=== PATIENT | male | born 1965 | race Caucasian/White ===

== ENCOUNTER → 2019-03-15 06:55 | Outpatient (CLI) | payer BC, SELFPAY ==
[2019-03-15 08:41] LABS: Add Manual Diff / Slide Review NO; Basophils Absolute Auto 0 /uL (0-100); Basophils Percent Auto 0.7 % (0-2); Eosinophils Absolute Auto 100 /uL (0-450); Eosinophils Percent Auto 1.5 % (2-4); Hemoglobin 12.9 g/dL (13.5-17.5); Lymphocytes Absolute Auto 1500 /uL (1100-4500); Mean Corpuscular HGB Conc 32.3 % (30-36); Mean Corpuscular Hemoglobin 25.9 PG (26-34); Mean Corpuscular Volume 80.3 fL (80-100); Monocytes Absolute Auto 1000 /uL (0-900); Monocytes Percent Auto 14.3 % (3-14); Neutrophils Absolute Auto 4300 /uL (1500-7000); Neutrophils Percent Auto 61.5 % (50-75); Platelet Count 356 X10^3/uL (150-400); Red Blood Cell Count 4.98 X10^6/uL (4.5-5.9)
[2019-03-15 09:07] LABS: Alanine Aminotransferase 45 IU/L (21-72); Albumin 4.4 g/dL (3.5-5.0); Albumin Globulin Ratio 1.5 (1.0-2.8); Alkaline Phosphatase 112 U/L (38-126); Aspartate Aminotransferase 36 IU/L (17-59); BUN Creatinine Ratio 21.3 (6-22); Bilirubin Total 0.4 mg/dL (0.2-1.3); Blood Urea Nitrogen 17 mg/dL (9-20); Calcium 9.6 mg/dL (8.4-10.2); Carbon Dioxide 28 mmol/L (22-32); Chloride 101 mmol/L (98-107); Cholesterol 178 mg/dL (140-199); Estimated Glomerular Filt Rate > 60.0 mL/min (>60); Glucose 86 mg/dL (70-100); HDL Cholesterol 43 mg/dL (40-60); HEMOLYSIS < 15 (0-50); LDL Cholesterol Calculated 110 mg/dL (<100); Potassium 4.7 mmol/L (3.4-5.1); Sodium 137 mmol/L (137-145); Total Protein 7.4 g/dL (6.3-8.2); Triglycerides 126 mg/dL (35-150)
[2019-03-15 09:36] LABS: Prostate Specific Antigen Scrn 0.665 ng/mL (0.1-4.0)
== END ==
PROVIDERS: PCP Family Medicine; Visit Provider Family Medicine
DX: I10 Essential (primary) hypertension (principal); Z00.00 Encounter for general adult medical examination without abnormal findings; Z12.5 Encounter for screening for malignant neoplasm of prostate
CPT/HCPCS: 36415; 80053; 80061; 85025; G0103

== ENCOUNTER → 2019-06-10 07:02 | Outpatient (CLI) | payer BC, SELFPAY ==
[2019-06-10 07:48] LABS: Add Manual Diff / Slide Review NO; Basophils Absolute Auto 0 /uL (0-100); Basophils Percent Auto 0.6 % (0-2); Eosinophils Absolute Auto 100 /uL (0-450); Eosinophils Percent Auto 1.8 % (2-4); Hematocrit 45.8 % (41-53); Hemoglobin 15.7 g/dL (13.5-17.5); Lymphocytes Absolute Auto 1800 /uL (1100-4500); Lymphocytes Percent Auto 25.3 % (25-40); Mean Corpuscular HGB Conc 34.3 % (30-36); Mean Corpuscular Hemoglobin 29.7 PG (26-34); Mean Corpuscular Volume 86.7 fL (80-100); Monocytes Absolute Auto 900 /uL (0-900); Monocytes Percent Auto 12.9 % (3-14); Neutrophils Absolute Auto 4200 /uL (1500-7000); Neutrophils Percent Auto 59.4 % (50-75); Platelet Count 290 X10^3/uL (150-400); Red Blood Cell Count 5.29 X10^6/uL (4.5-5.9); Red Cell Distribution Width 16.3 % (11.6-14.8); White Blood Cell Count 7.1 X10^3/uL (4.5-11.0)
[2019-06-10 07:50] LABS: Reticulocyte Count, Percent 0.8 % (0.87-2.60)
[2019-06-10 08:24] LABS: HEMOLYSIS < 15 (0-50); Iron 61 ug/dL (49-181)
[2019-06-10 08:35] LABS: Percent Iron Saturation 18 % (20-50); Total Iron Binding Capacity 346 ug/dL (261-462); Transferrin 274 mg/dL (206-381)
[2019-06-10 09:03] LABS: Ferritin 17.1 ng/mL (17.9-464)
[2019-06-10 09:17] LABS: Vitamin B12 300 pg/mL (239-931)
== END ==
PROVIDERS: PCP Family Medicine; Visit Provider Family Medicine
DX: D50.0 Iron deficiency anemia secondary to blood loss (chronic) (principal)
CPT/HCPCS: 36415; 82607; 82728; 83540; 83550; 85025; 85045

== ENCOUNTER → 2019-07-28 11:17 | Outpatient (CLI) | payer BC, SELFPAY ==
[2019-07-28 12:04] LABS: Add Manual Diff / Slide Review NO; Basophils Absolute Auto 100 /uL (0-100); Basophils Percent Auto 0.8 % (0-2); Eosinophils Absolute Auto 100 /uL (0-450); Eosinophils Percent Auto 0.7 % (2-4); Hematocrit 45.5 % (41-53); Lymphocytes Absolute Auto 1500 /uL (1100-4500); Lymphocytes Percent Auto 20.4 % (25-40); Mean Corpuscular HGB Conc 35.2 % (30-36); Mean Corpuscular Volume 88.1 fL (80-100); Monocytes Absolute Auto 1000 /uL (0-900); Monocytes Percent Auto 13.9 % (3-14); Neutrophils Absolute Auto 4800 /uL (1500-7000); Neutrophils Percent Auto 64.2 % (50-75); Platelet Count 276 X10^3/uL (150-400); Red Blood Cell Count 5.16 X10^6/uL (4.5-5.9); Red Cell Distribution Width 13.4 % (11.6-14.8); White Blood Cell Count 7.6 X10^3/uL (4.5-11.0)
[2019-07-28 12:25] LABS: HEMOLYSIS < 15 (0-50); Iron 101 ug/dL (49-181)
[2019-07-28 12:38] LABS: Percent Iron Saturation 31 % (20-50); Total Iron Binding Capacity 323 ug/dL (261-462); Transferrin 261 mg/dL (206-381)
[2019-07-28 13:00] LABS: Ferritin 54.5 ng/mL (17.9-464)
[2019-07-28 13:10] LABS: Reticulocyte Count, Percent 0.9 % (0.87-2.60)
[2019-07-28 13:15] LABS: Vitamin B12 533 pg/mL (239-931)
== END ==
PROVIDERS: PCP Family Medicine; Visit Provider Family Medicine
DX: D50.0 Iron deficiency anemia secondary to blood loss (chronic) (principal)
CPT/HCPCS: 36415; 82607; 82728; 83540; 83550; 85025; 85045

== ENCOUNTER → 2019-12-05 16:53 | Outpatient (CLI) | payer BC, SELFPAY ==
[2019-12-05 17:36] LABS: Add Manual Diff / Slide Review NO; Basophils Absolute Auto 0 /uL (0-100); Basophils Percent Auto 0.6 % (0-2); Eosinophils Absolute Auto 100 /uL (0-450); Hematocrit 43.7 % (41-53); Lymphocytes Absolute Auto 1600 /uL (1100-4500); Lymphocytes Percent Auto 23.2 % (25-40); Mean Corpuscular HGB Conc 34.3 % (30-36); Mean Corpuscular Hemoglobin 31.4 PG (26-34); Mean Corpuscular Volume 91.7 fL (80-100); Monocytes Absolute Auto 1000 /uL (0-900); Monocytes Percent Auto 14.2 % (3-14); Neutrophils Absolute Auto 4100 /uL (1500-7000); Platelet Count 250 X10^3/uL (150-400); Red Blood Cell Count 4.77 X10^6/uL (4.5-5.9); White Blood Cell Count 6.9 X10^3/uL (4.5-11.0)
== END ==
PROVIDERS: PCP Family Medicine; Referring Provider Family Medicine; Visit Provider Family Medicine
DX: D50.0 Iron deficiency anemia secondary to blood loss (chronic) (principal)
CPT/HCPCS: 36415; 85025

== ENCOUNTER → 2020-06-12 08:28 | Outpatient (CLI) | payer BC, SELFPAY ==
[2020-06-12 10:08] LABS: Alanine Aminotransferase 31 IU/L (<50); Albumin 4.2 g/dL (3.5-5.0); Albumin Globulin Ratio 1.6 (1.0-2.8); Alkaline Phosphatase 80 U/L (38-126); Aspartate Aminotransferase 34 IU/L (17-59); BUN Creatinine Ratio 22.1 (6-22); Bilirubin Total 0.7 mg/dL (0.2-1.3); Blood Urea Nitrogen 19 mg/dL (9-20); Calcium 9.3 mg/dL (8.4-10.2); Carbon Dioxide 26 mmol/L (22-32); Chloride 105 mmol/L (98-107); Cholesterol 158 mg/dL (140-199); Estimated Glomerular Filt Rate > 60.0 mL/min (>60); Globulin 2.7 g/dL (1.7-4.1); Glucose 89 mg/dL (70-100); HDL Cholesterol 46 mg/dL (40-60); HEMOLYSIS < 15 (0-50); LDL Cholesterol Calculated 96 mg/dL (<100); Potassium 4.5 mmol/L (3.4-5.1); Sodium 138 mmol/L (137-145); Total Protein 6.9 g/dL (6.3-8.2); Triglycerides 78 mg/dL (35-150)
[2020-06-12 10:41] LABS: Prostate Specific Antigen Scrn 0.548 ng/mL (0.1-4.0)
== END ==
PROVIDERS: PCP Family Medicine; Referring Provider Family Medicine; Visit Provider Family Medicine
DX: Z12.5 Encounter for screening for malignant neoplasm of prostate (principal); I10 Essential (primary) hypertension; G47.33 Obstructive sleep apnea (adult) (pediatric); E78.5 Hyperlipidemia, unspecified
CPT/HCPCS: 36415; 80053; 80061; G0103

== ENCOUNTER → 2020-12-17 07:20 | Outpatient (CLI) | payer BC, SELFPAY ==
[2020-12-17 07:38] LABS: Add Manual Diff / Slide Review NO; Basophils Absolute Auto 0 /uL (0-100); Basophils Percent Auto 0.4 % (0-2); Eosinophils Absolute Auto 100 /uL (0-450); Hematocrit 42.3 % (41-53); Hemoglobin 14.5 g/dL (13.5-17.5); Lymphocytes Absolute Auto 1500 /uL (1100-4500); Lymphocytes Percent Auto 23.8 % (25-40); Mean Corpuscular HGB Conc 34.2 % (30-36); Mean Corpuscular Hemoglobin 30.8 PG (26-34); Monocytes Absolute Auto 800 /uL (0-900); Monocytes Percent Auto 12.8 % (3-14); Neutrophils Absolute Auto 3900 /uL (1500-7000); Platelet Count 250 X10^3/uL (150-400); Red Cell Distribution Width 12.9 % (11.6-14.8); White Blood Cell Count 6.4 X10^3/uL (4.5-11.0)
== END ==
PROVIDERS: PCP Family Medicine; Referring Provider Family Medicine; Visit Provider Family Medicine
DX: D50.0 Iron deficiency anemia secondary to blood loss (chronic) (principal); I10 Essential (primary) hypertension
CPT/HCPCS: 36415; 85025

== ENCOUNTER → 2021-09-18 07:03 | Outpatient (CLI) | payer BC, SELFPAY ==
[2021-09-18 08:17] LABS: Add Manual Diff / Slide Review NO; Basophils Absolute Auto 0 /uL (0-100); Basophils Percent Auto 0.6 % (0-2); Eosinophils Absolute Auto 100 /uL (0-450); Eosinophils Percent Auto 2.4 % (2-4); Hematocrit 41.5 % (41-53); Hemoglobin 14.1 g/dL (13.5-17.5); Lymphocytes Absolute Auto 1300 /uL (1100-4500); Lymphocytes Percent Auto 23.6 % (25-40); Mean Corpuscular Hemoglobin 30.9 PG (26-34); Mean Corpuscular Volume 90.9 fL (80-100); Monocytes Absolute Auto 800 /uL (0-900); Monocytes Percent Auto 14.8 % (3-14); Neutrophils Absolute Auto 3100 /uL (1500-7000); Neutrophils Percent Auto 58.6 % (50-75); Platelet Count 207 X10^3/uL (150-400); Red Blood Cell Count 4.57 X10^6/uL (4.5-5.9); Red Cell Distribution Width 13.2 % (11.6-14.8); White Blood Cell Count 5.3 X10^3/uL (4.5-11.0)
[2021-09-18 08:39] LABS: Alanine Aminotransferase 23 IU/L (<50); Albumin 4.2 g/dL (3.5-5.0); Albumin Globulin Ratio 1.8 (1.0-2.8); Alkaline Phosphatase 75 U/L (38-126); Aspartate Aminotransferase 27 IU/L (17-59); BUN Creatinine Ratio 15.7 (6-22); Bilirubin Total 0.4 mg/dL (0.2-1.3); Blood Urea Nitrogen 14 mg/dL (9-20); Calcium 9.5 mg/dL (8.4-10.2); Carbon Dioxide 27 mmol/L (22-32); Chloride 104 mmol/L (98-107); Cholesterol 173 mg/dL (140-199); Estimated Glomerular Filt Rate > 60.0 mL/min (>60); Globulin 2.4 g/dL (1.7-4.1); Glucose 90 mg/dL (70-100); HDL Cholesterol 52 mg/dL (40-60); HEMOLYSIS < 15 (0-50); LDL Cholesterol Calculated 102 mg/dL (<100); Potassium 4.5 mmol/L (3.4-5.1); Sodium 140 mmol/L (137-145); Total Protein 6.6 g/dL (6.3-8.2); Triglycerides 94 mg/dL (35-150)
[2021-09-18 09:10] LABS: Prostate Specific Antigen Scrn 0.607 ng/mL (0.1-4.0)
== END ==
PROVIDERS: PCP Family Medicine; Referring Provider Family Medicine; Visit Provider Family Medicine
DX: D50.0 Iron deficiency anemia secondary to blood loss (chronic) (principal); E78.5 Hyperlipidemia, unspecified; I10 Essential (primary) hypertension; Z12.5 Encounter for screening for malignant neoplasm of prostate
CPT/HCPCS: 36415; 80053; 80061; 85025; G0103

== ENCOUNTER → 2022-08-28 08:17 | Outpatient (CLI) | payer BC, SELFPAY ==
[2022-08-28 09:37] LABS: Hematocrit 43.4 % (41-53); Hemoglobin 14.8 g/dL (13.5-17.5); Mean Corpuscular HGB Conc 34.1 % (30-36); Mean Corpuscular Hemoglobin 30.9 PG (26-34); Mean Corpuscular Volume 90.7 fL (80-100); Platelet Count 304 X10^3/uL (150-400); Red Blood Cell Count 4.79 X10^6/uL (4.5-5.9); Red Cell Distribution Width 13.1 % (11.6-14.8); White Blood Cell Count 5.2 X10^3/uL (4.5-11.0)
[2022-08-28 10:34] LABS: Alanine Aminotransferase 30 IU/L (<50); Albumin 4.4 g/dL (3.5-5.0); Albumin Globulin Ratio 1.5 (1.0-2.8); Alkaline Phosphatase 80 U/L (38-126); Aspartate Aminotransferase 31 IU/L (17-59); Bilirubin Total 0.7 mg/dL (0.2-1.3); Blood Urea Nitrogen 11 mg/dL (9-20); Calcium 9.6 mg/dL (8.4-10.2); Carbon Dioxide 26 mmol/L (22-32); Chloride 101 mmol/L (98-107); Cholesterol 164 mg/dL (140-199); Estimated Glomerular Filt Rate > 60 mL/min (>60); Glucose 89 mg/dL (70-100); HDL Cholesterol 53 mg/dL (40-60); HEMOLYSIS < 15 (0-50); LDL Cholesterol Calculated 95 mg/dL (<100); Potassium 4.3 mmol/L (3.4-5.1); Sodium 138 mmol/L (137-145); Total Protein 7.4 g/dL (6.3-8.2); Triglycerides 79 mg/dL (35-150)
[2022-08-28 10:38] LABS: TSH w/ Reflex to FT4 2.82 uIU/mL (0.47-4.68)
[2022-08-28 10:47] LABS: Prostate Specific Antigen Scrn 0.683 ng/mL (0.1-4.0)
== END ==
PROVIDERS: PCP Family Medicine; Referring Provider Registered Nurse Diabetes Educator; Visit Provider Registered Nurse Diabetes Educator
DX: Z00.00 Encounter for general adult medical examination without abnormal findings (principal); Z12.5 Encounter for screening for malignant neoplasm of prostate; E78.5 Hyperlipidemia, unspecified; I10 Essential (primary) hypertension
CPT/HCPCS: 36415; 80053; 80061; 84443; 85027; G0103

== ENCOUNTER → 2022-11-26 13:36 | Outpatient (CLI) | payer BC, SELFPAY | PROVIDERS: PCP Family Medicine; Referring Provider Family Medicine; Visit Provider Family Medicine | DX: R00.2 Palpitations (principal); I10 Essential (primary) hypertension; F98.8 Other specified behavioral and emotional disorders with onset usually occurring in childhood and adolescence | CPT/HCPCS: 93005 ==

== ENCOUNTER 2023-04-16 16:51 | Observation (INO) | payer BC, SELFPAY ==
[2023-04-16] VITALS (32 sets, daily range): BP systolic 95–151; BP diastolic 71–94; PULSE 59–155; RESP 10–29; TEMP 36.3–37.1; O2SAT 94–98; BMI 25.1; BMI 25.4
--- NOTE | 2023-04-16 17:04 | ED_ITS ---
HPI - Arrhythmia/Palpitations General Chief Complaint: Arrhythmia/Palpitations Stated Complaint: cardiac issues Time Seen by Provider: 04/16/23 16:55 Source: patient Mode of arrival: Ambulatory History of Present Illness HPI narrative: 57M nonsmoker with history of ADHD presents with family in the chief complaint of 1-2 hours of rapid heart rate. He feels dizzy, weak and lightheaded and a bit short of breath. He denies any chest pain. He states that he is certain this is only been going on for 1-2 hours he denies any history of the same. He has recently traveled cross[place]country. He denies any lower extremity pain, swelling or redness. He denies any change in diet or medications. He does drink 3 drinks per day and has not changed his rate. He is otherwise well and free of complaint. Related Data Home Medications Medication Instructions Recorded Confirmed Respironics Dreamstation CPAP #1 ea 03/24/19 11/21/22 Previous Rx's Medication Instructions Recorded bupropion HCl 300 mg 24 hr tablet, 300 mg PO QAM #90 tabs 11/21/22 extended release lisdexamfetamine 20 mg capsule 20 mg PO DAILY #30 caps 11/21/22 lisdexamfetamine 20 mg capsule 20 mg PO DAILY #30 caps 11/21/22 lisdexamfetamine 20 mg capsule 20 mg PO DAILY ADD #90 caps 11/21/22 lisinopril 10 mg tablet 15 mg PO DAILY #135 tabs 11/21/22 Allergies Allergy/AdvReac Type Severity Reaction Status Date / Time No Known Drug Allergies Allergy Unknown Verified 04/16/23 16:58 [NO KNOWN DRUG ALLERGIES] Review of Systems Review of Systems Narrative: GENERAL: Denies chills, fatigue, malaise, fever, sweats. HEENT: Denies sinus pain, ear pain, sore throat, difficulty swallowing, dizziness. RESPIRATORY: Denies dyspnea, cough, wheezing, hemoptysis, sputum. CARDIOVASCULAR: See HPI GASTROINTESTINAL: Denies nausea, vomiting, abdominal pain, diarrhea, constipation, melena. : Denies dysuria, frequency, incontinence, hematuria, urinary retention. MUSCULOSKELETAL: denies weakness, joint pain, or bony pain SKIN: Denies rash, skin lesions, or other NEUROLOGIC: Denies weakness, headache, numbness, change in speech, confusion, seizures, incoordination. PSYCHIATRIC: No concerning psychosocial issues. 12 point review of systems is negative except for those stated above Patient History Medical History Anxiety (12/25/17) Asperger's disorder (01/29/18) Chicken pox (1968) Fatigue Hearing loss (2010) Hypertension (11/24/16) Hypertension (2006) Iron deficiency anemia due to chronic blood loss Obstructive sleep apnea of adult Plantar warts Platelet donor Snoring Surgical History Status post biopsy (05/29/15) Family History Father Age: 94 Hypertension Prostate cancer Multiple myeloma Melanoma Mother Age: 89 Heart disease Hypertension Breast cancer CAD (coronary artery disease) ST elevation myocardial infarction (STEMI), unspecified artery Pneumonia due to infectious organism, unspecified laterality, unspecified part of lung Uncomplicated asthma, unspecified asthma severity Grandfather Cancer Grandmother Renal failure Grandfather Heart attack Grandmother Lung cancer Secondhand smoke exposure Nonsmoker Sister No problems noted. 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 Sailing, skiing) Smoking Status: Never smoker Tobacco: How many years used: 0 quit status: quit date established (Never Started) second hand exposure: No alcohol intake: current (Moderately. 1-2 beers a day) substance use type: does not use Smoking Status: Never smoker alcohol intake frequency: 3 or more drinks per day Substance Use Type: does not use Exam Narrative Exam Narrative: GENERAL: [57] year old patient appears stated age. Well-developed patient, in mild distress. HEAD: Atraumatic. Normocephalic. EYES: Pupils equal round and reactive. Extraocular motions intact. No scleral icterus. No injection or drainage. ENT: Nose without bleeding, purulent drainage. Throat without erythema, tonsillar hypertrophy or exudate. Airway patent. NECK: Trachea midline. Non tender CARDIOVASCULAR: Tachycardic and irregular rhythm without murmurs, gallops, or rubs. RESPIRATORY: Clear to auscultation. Breath sounds equal bilaterally. No wheezes, rales, or rhonchi. GASTROINTESTINAL: Abdomen soft, non-tender, nondistended. EXTREMITIES: No edema or joint tenderness. BACK: Nontender without deformity or crepitance. No flank tenderness. NEURO: AOx3. SKIN: No rash or erythema of visible areas Initial Vital Signs Initial Vital Signs: Vital Signs Temperature 97.3 F L 04/16/23 16:54 Pulse Rate 74 04/16/23 16:54 Respiratory Rate 18 04/16/23 16:54 Blood Pressure 119/94 H 04/16/23 16:54 Pulse Oximetry 97 04/16/23 16:54 Oxygen Delivery Method Room Air 04/16/23 16:54 Procedures Cardioversion Consent Signed: Yes Procedural Sedation Consent signed: Yes Time out performed: Yes Indication: cardioversion Mallampati Airway Classification: Class II Preparation: satellite project site monitor applied, pulse oximeter, capnometry used, supplemental O2 applied, suction/airway equipment at bedside and IV secured IV Propofol dose (mg): 110 Intraservice time/total sedation time (min): 15 ED Sedation Level: Moderate (Concious) Patient Tolerated Procedure: Well and No complications Complications: none Course Orders Ordered: ED Orders 04/16/23 17:03 EKG-12 Lead Stat 04/16/23 17:07 Complete Blood Count AUTO DIFF Stat Comprehensive Metabolic Panel Stat D Dimer Stat Lipase Stat NT-proBNP (BNP-Adult 18+) Stat Prothrombin Time INR Stat Troponin & CK Cardiac Panel Stat Sodium Chloride (Normal Saline 0.9%) 1,000 mls @ 150 mls/hr IV CONT ADOLPH Last Admin: 04/16/23 17:54 Dose: 150 mls/hr Documented By: AT DILTIAZEM (Diltiazem 125 Mg/125 Ml-D5w) 125 mg in 125 mls @ 5 mls/hr IV TITRATE ADOLPH; Protocol Discontinued Medications Diltiazem HCl (Diltiazem 5 Mg/Ml Sdv) 20 mg IV NOW ONE Stop: 04/16/23 18:04 Propofol (Propofol 200 Mg/20 Ml Vial) 80 mg 1 mg/kg (80 mg) IV NOW ONE Stop: 04/16/23 17:03 Vital Signs Vital signs: Vital Signs - 8 hr 04/16/23 16:54 Temperature 97.3 F L Pulse Rate 74 Respiratory Rate 18 Blood Pressure 119/94 H Pulse Oximetry 97 Oxygen Delivery Method Room Air MDM - Arrhythmia/Palpitations Lab Data 04/16/23 17:07 04/16/23 17:07 Labs: Lab Results 04/16/23 04/16/23 04/16/23 Range/Units 17:07 17:07 17:07 WBC 9.4 (4.5-11.0) X10^3/uL RBC 4.95 (4.5-5.9) X10^6/uL Hgb 15.8 (13.5-17.5) g/dL Hct 44.7 (41-53) % MCV 90.2 (80-100) fL MCH 31.8 (26-34) PG MCHC 35.3 (30-36) % RDW 13.6 (11.6-14.8) % Plt Count 269 (150-400) X10^3/uL Neut % (Auto) 70.3 (50-75) % Lymph % (Auto) 15.7 L (25-40) % [place] % (Auto) 12.7 (3-14) % Eos % (Auto) 0.6 L (2-4) % Baso % (Auto) 0.7 (0-2) % Neut # (Auto) 6600 (4666-6300) /uL Lymph # (Auto) 1500 (8945-1832) /uL [place] # (Auto) 1200 H (0-900) /uL Eos # (Auto) 100 (0-450) /uL Baso # (Auto) 100 (0-100) /uL PT 12.3 (10.1-12.7) SECONDS INR 1.1 (0.9-1.3) D-Dimer < 215 (<500) ng/ml Sodium 135 L (137-145) mmol/L Potassium 4.0 (3.4-5.1) mmol/L Chloride 102 (98-107) mmol/L Carbon Dioxide 25 (22-32) mmol/L BUN 16 (9-20) mg/dL Creatinine 0.89 (0.66-1.25) mg/dL Estimated GFR > 60 (>60) mL/min BUN/Creatinine Ratio 18.0 (6-22) Glucose 142 H (70-100) mg/dL Calcium 8.9 (8.4-10.2) mg/dL Total Bilirubin 0.8 (0.2-1.3) mg/dL AST 37 (17-59) IU/L ALT 29 (<50) IU/L Alkaline Phosphatase 94 (38-126) U/L Total Creatine Kinase 390 H (55-170) U/L CK-MB (CK-2) TNP CK-MB (CK-2) Rel Index TNP Troponin I < 0.012 (0.01-0.034) ng/mL NT-Pro-B Natriuret Pep 60 (<125) pg/mL Total Protein 7.7 (6.3-8.2) g/dL Albumin 4.3 (3.5-5.0) g/dL Globulin 3.4 (1.7-4.1) g/dL Albumin/Globulin Ratio 1.3 (1.0-2.8) Lipase 68 (23-300) U/L ECG Data Interpretation: Rapid atrial fibrillation in the 160s with minimal ST depressions laterally MDM Narrative Medical decision making narrative: 57-year-old male with new onset atrial fibrillation for approximately 2 hours prior to arrival and is moderately symptomatic, EKG is in the 160s with lateral ST depressions. He is a very appropriate candidate for procedural sedation and cardioversion. Is consented and unfortunately after 3 shocks he did not convert. At this point Cardizem push and drip ordered, discussion with hospitalist (Dr. Suazo) who is happy to take patient on service Discharge Plan Departure Patient Disposition: Admitted as Observation Clinical Impression: Atrial fibrillation with RVR Prescriptions: No Action bupropion HCl 300 mg tablet extended release 24 hr 300 mg PO QAM Qty: 90 1RF lisinopril 10 mg tablet 15 mg PO DAILY Qty: 135 0RF lisdexamfetamine 20 mg capsule 20 mg PO DAILY Qty: 30 0RF Rx Instructions: 2 of 3 lisdexamfetamine 20 mg capsule 20 mg PO DAILY Qty: 30 0RF lisdexamfetamine 20 mg capsule 20 mg PO DAILY Qty: 90 0RF (DME) Respironics Dreamstation CPAP Qty: 1 Dose Instruction: As directed Patient Comments: Pressure: 6-12 cmH2O DME: Seth Rx Instructions: As directed Referrals: Tiff Whipple DO [Primary Care Provider] - Admit Date/Time: 04/16/23 18:08 Admit Provider: León Suazo
[2023-04-16 17:14] LABS: Add Manual Diff / Slide Review NO; Basophils Absolute Auto 100 /uL (0-100); Basophils Percent Auto 0.7 % (0-2); Eosinophils Absolute Auto 100 /uL (0-450); Eosinophils Percent Auto 0.6 % (2-4); Hematocrit 44.7 % (41-53); Hemoglobin 15.8 g/dL (13.5-17.5); Lymphocytes Absolute Auto 1500 /uL (1100-4500); Lymphocytes Percent Auto 15.7 % (25-40); Mean Corpuscular HGB Conc 35.3 % (30-36); Mean Corpuscular Hemoglobin 31.8 PG (26-34); Mean Corpuscular Volume 90.2 fL (80-100); Monocytes Absolute Auto 1200 /uL (0-900); Monocytes Percent Auto 12.7 % (3-14); Neutrophils Absolute Auto 6600 /uL (1500-7000); Neutrophils Percent Auto 70.3 % (50-75); Platelet Count 269 X10^3/uL (150-400); Red Blood Cell Count 4.95 X10^6/uL (4.5-5.9); Red Cell Distribution Width 13.6 % (11.6-14.8); White Blood Cell Count 9.4 X10^3/uL (4.5-11.0)
[2023-04-16 17:26] LABS: INR 1.1 (0.9-1.3); Prothrombin Time 12.3 SECONDS (10.1-12.7)
[2023-04-16 17:29] LABS: D Dimer < 215 ng/ml (<500)
[2023-04-16 17:31] LABS: Alanine Aminotransferase 29 IU/L (<50); Albumin 4.3 g/dL (3.5-5.0); Albumin Globulin Ratio 1.3 (1.0-2.8); Alkaline Phosphatase 94 U/L (38-126); Aspartate Aminotransferase 37 IU/L (17-59); Bilirubin Total 0.8 mg/dL (0.2-1.3); Blood Urea Nitrogen 16 mg/dL (9-20); Calcium 8.9 mg/dL (8.4-10.2); Carbon Dioxide 25 mmol/L (22-32); Chloride 102 mmol/L (98-107); Creatine Kinase 390 U/L (55-170); Estimated Glomerular Filt Rate > 60 mL/min (>60); Globulin 3.4 g/dL (1.7-4.1); Glucose 142 mg/dL (70-100); HEMOLYSIS 29 (0-50); Lipase 68 U/L (23-300); Sodium 135 mmol/L (137-145); Total Protein 7.7 g/dL (6.3-8.2)
[2023-04-16 17:43] LABS: NT-proBNP (BNP-Adult 18+) 60 pg/mL (<125); Troponin I < 0.012 ng/mL (0.01-0.034)
[2023-04-16] MEDS: SODIUM CHLORIDE 0.9% 1,000 ML 150 ML IV (17:54)
[2023-04-16] MEDS: propofoL 200 MG/20 ML VIAL 80 MG IV (17:55)
[2023-04-16] MEDS: propofoL 200 MG/20 ML VIAL 30 MG IV (17:59)
[2023-04-16] MEDS: dilTIAZem 5 MG/ML SDV 20 MG IV (18:20)
[2023-04-16] MEDS: DILTIAZEM 125 MG/125 ML PIGGYBACK IV (18:26)
[2023-04-16] MEDS: dilTIAZem 30 MG TABLET PO (19:47)
--- NOTE | 2023-04-16 20:22 | DI.ECHO.S_ITS ---
[facility] +---------+ : : [address] [place] [place] : : : : [id number] : : : : Phone: [phone] Echocardiogram Report + + :Name: BYRON PAREDES Study Date: 04/17/2023 Height: 70 in : :[facility] ReadingLocation: Weight: 175 lb : : Gender: Male BSA: 2.0 m2 : :: 1965 Age: 57 yrs BP: 129/85 mmHg: :Reason For Study: Atrial Fibrillation : :Ordering Physician: Bean, : :Des Performed By: Esha Lemons : :Referring: DES CAMARILLO : + + Interpretation Summary The ejection fraction is estimated to be 60-65%. The patient was in normal sinus rhythm during the exam. Diastolic parameters suggest probable normal left ventricular diastolic function and normal filling pressures. The right ventricular systolic function is normal. The IVC is of normal diameter and collapses greater than 50% with a sniff. This suggests a low right atrial pressure of 3 mm Hg. No significant valvular abnormality. Procedure: A two-dimensional transthoracic echocardiogram with color flow and Doppler was performed. The study quality was technically adequate. There is no prior echocardiogram noted for this patient. The patient was in normal sinus rhythm during the exam. Left Ventricle: The left ventricle is normal in size. The ejection fraction is estimated to be 60-65%. Diastolic parameters suggest probable normal left ventricular diastolic function and normal filling pressures. Right Ventricle: The right ventricle is normal size. The right ventricular systolic function is normal. Atria: The left atrium is borderline dilated. Right atrial size is normal. There is no Doppler evidence for an interatrial shunt. Mitral Valve: The mitral valve is normal. There is no mitral valve stenosis. There is trace mitral regurgitation. Aortic Valve: The aortic valve is not well visualized. There is no aortic valve stenosis. No aortic regurgitation is present. Tricuspid Valve: The tricuspid valve is normal. There is no tricuspid stenosis. There is trace tricuspid regurgitation. Pulmonic Valve: The pulmonic valve leaflets are thin and pliable; valve motion is normal. There is no pulmonic valvular stenosis. There is no pulmonic valvular regurgitation. Great Vessels: The aortic root is normal size. The ascending aorta is normal in size. The pulmonary artery is normal size. The IVC is of normal diameter and collapses greater than 50% with a sniff. This suggests a low right atrial pressure of 3 mm Hg. Pericardium/ Pleura There is no pericardial effusion. There is no pleural effusion. MMode/2D Measurements & Calculations LVIDd: 4.4 cm LVOT diam: 2.0 cm LVIDs: 2.7 cm Ao root diam: 3.5 cm FS: 38.6 % asc Aorta Diam: 3.3 cm IVSd: 1.1 cm LVPWd: 0.90 cm LV torres. diameter/BSA (cm/m^2): 2.2 LV sys. diameter/BSA (cm/m^2): 1.4 LA A2 area: 19.0 cm2 RA long axis: 5.5 cm LA A4 area: 11.9 cm2 RA area: 18.8 cm2 LA length (vol): 5.5 cm RA vol: 54.6 ml LA vol: 34.7 ml RA : 27.7 ml/m2 LA vol index: 17.6 ml/m2 RVD1 (basal): 3.7 cm LVLs ap4: 7.1 cm LVLd ap2: 9.2 cm TAPSE_phl: 3.0 cm LVLs ap2: 7.0 cm Doppler Measurements & Calculations Ao V2 max: 218.0 cm/sec LVOT Max Levi: 188.0 cm/sec Ao V2 mean: 141.0 cm/sec LV V1 max P.1 mmHg Ao max P.0 mmHg LV V1 VTI: 36.2 cm Ao mean P.0 mmHg URSULA(I,D): 2.5 cm2 Ao V2 VTI: 44.8 cm URSULA(V,D): 2.7 cm2 sev ratio: 0.81 URSULA indexed to BSA (cm^2/m^2): 1.3 MV E max levi: 80.2 cm/sec TR max levi: 262.0 cm/sec MV A max levi: 63.1 cm/sec TR max P.5 mmHg MV E/A: 1.3 Med Peak E' Levi: 9.4 cm/sec E/E' med: 8.6 Lat Peak E' Levi: 17.9 cm/sec E/E' lat: 4.5 E/e' average: 6.5 MV dec time: 0.26 sec SV(LVOT): 113.7 ml AV VR_phl: 0.86 URSULA(VTI)/BSA_phl: 1.3 P1/2t-pr_phl: 76.0 msec Reading Physician:MICHELLE
[2023-04-16 20:23] LABS: TSH w/ Reflex to FT4 2.55 uIU/mL (0.47-4.68)
--- NOTE | 2023-04-16 21:22 | P.HP_ITS ---
History of Present Illness History of Present Illness Date Patient Seen: 04/16/23 Time Patient Seen: 20:00 Chief complaint: cardiac issues Narrative: Mr. High is a 57M with H ADHD who presents to the hospital with lightheadedness and palpitations. He notes that these symptoms began today. He had no chest pain, no shortness of breath. No lower extremity swelling. He does drink 2-3 alcoholic drinks per day. In the ED workup was done, vitals notable for afebrile, heart rate in the 160s, blood pressure 110s/90s, sats 97% on room air. Labs reviewed and notable for WBC 9.4, hgb 15.8. creatinine 0.89. EKG showed heart rate in the 160s in atrial fibrillation with lateral ST depressions. Cardioversion was attempted x3 but was unsuccessful. He was ordered for push dose diltiazem and started on diltiazem drip and his heart rate improved to the 80s, and he remained in atrial fibrillation. He was admitted for further treatment. [facility] Medical History Anxiety (12/25/17) Asperger's disorder (01/29/18) Chicken pox (1968) Fatigue Hearing loss (2010) Hypertension (11/24/16) Hypertension (2006) Iron deficiency anemia due to chronic blood loss Obstructive sleep apnea of adult Plantar warts Platelet donor Snoring Surgical History Status post biopsy (05/29/15) Family History Father Age: 94 Hypertension Prostate cancer Multiple myeloma Melanoma Mother Age: 89 Heart disease Hypertension Breast cancer CAD (coronary artery disease) ST elevation myocardial infarction (STEMI), unspecified artery Pneumonia due to infectious organism, unspecified laterality, unspecified part of lung Uncomplicated asthma, unspecified asthma severity Grandfather Cancer Grandmother Renal failure Grandfather Heart attack Grandmother Lung cancer Secondhand smoke exposure Nonsmoker Sister No problems noted. 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 Sailing, skiing) Smoking Status: Never smoker Tobacco: How many years used: 0 quit status: quit date established (Never Started) second hand exposure: No alcohol intake: current substance use type: does not use Meds Home Medications and Allergies Home Medications Medication Instructions Recorded Confirmed Type Respironics Dreamstation CPAP #1 ea 03/24/19 11/21/22 History bupropion HCl 300 mg 24 hr tablet, 300 mg PO QAM #90 tabs 11/21/22 04/16/23 Rx extended release lisdexamfetamine 20 mg capsule 20 mg PO DAILY #30 caps 11/21/22 11/21/22 Rx lisdexamfetamine 20 mg capsule 20 mg PO DAILY #30 caps 11/21/22 11/21/22 Rx lisdexamfetamine 20 mg capsule 20 mg PO DAILY ADD #90 caps 11/21/22 11/21/22 Rx lisinopril 10 mg tablet 15 mg PO DAILY #135 tabs 11/21/22 04/16/23 Rx Allergies Allergy/AdvReac Type Severity Reaction Status Date / Time No Known Drug Allergies Allergy Unknown Verified 04/16/23 16:58 [NO KNOWN DRUG ALLERGIES] Review of Systems Review of Systems Narrative: 14 systems reviewed and negative aside from what is noted in HPI Exam Vital Signs (past 8 hours): - 04/16/23 16:54 04/16/23 18:20 04/16/23 18:05 Temperature 97.3 F L Pulse Rate 74 96 H 122 H Respiratory Rate 18 20 Blood Pressure 119/94 H 138/78 Pulse Oximetry 97 Oxygen Delivery Method Room Air 04/16/23 17:02 04/16/23 17:20 04/16/23 17:20 Temperature Pulse Rate 73 149 H Respiratory Rate Blood Pressure 129/93 H Pulse Oximetry 97 97 Oxygen Delivery Method Room Air 04/16/23 17:30 04/16/23 17:30 04/16/23 17:49 Temperature Pulse Rate 154 H Respiratory Rate 19 Blood Pressure 125/91 H Pulse Oximetry 97 97 Oxygen Delivery Method Room Air 04/16/23 17:49 04/16/23 17:50 04/16/23 17:50 Temperature Pulse Rate 150 H Respiratory Rate 16 Blood Pressure 123/82 133/81 Pulse Oximetry 97 Oxygen Delivery Method Room Air 04/16/23 17:55 04/16/23 17:55 04/16/23 18:00 Temperature Pulse Rate 153 H 155 H Respiratory Rate 18 25 H Blood Pressure 126/89 Pulse Oximetry 97 97 Oxygen Delivery Method Room Air Room Air 04/16/23 18:05 04/16/23 18:05 04/16/23 18:11 Temperature Pulse Rate 150 H 135 H Respiratory Rate 18 22 Blood Pressure 95/71 Pulse Oximetry 95 96 Oxygen Delivery Method Room Air 04/16/23 18:11 04/16/23 18:15 04/16/23 18:15 Temperature Pulse Rate 123 H Respiratory Rate 19 Blood Pressure 113/81 133/80 Pulse Oximetry 96 Oxygen Delivery Method Room Air 04/16/23 18:20 04/16/23 18:20 04/16/23 18:24 Temperature Pulse Rate 100 H 76 Respiratory Rate 18 12 Blood Pressure 138/78 Pulse Oximetry 96 97 Oxygen Delivery Method Room Air 04/16/23 18:24 04/16/23 18:25 04/16/23 18:25 Temperature Pulse Rate 75 Respiratory Rate 19 Blood Pressure 113/71 119/76 Pulse Oximetry 96 Oxygen Delivery Method Room Air 04/16/23 18:30 04/16/23 18:30 04/16/23 18:35 Temperature Pulse Rate 73 69 Respiratory Rate 17 21 Blood Pressure 115/75 Pulse Oximetry 94 95 Oxygen Delivery Method 04/16/23 18:35 04/16/23 18:40 04/16/23 18:40 Temperature Pulse Rate 79 Respiratory Rate 29 H Blood Pressure 112/73 123/79 Pulse Oximetry 98 Oxygen Delivery Method 04/16/23 18:50 04/16/23 18:50 04/16/23 19:00 Temperature Pulse Rate 73 Respiratory Rate 16 Blood Pressure 126/74 131/83 Pulse Oximetry 96 Oxygen Delivery Method 04/16/23 19:00 04/16/23 19:47 04/16/23 19:10 Temperature Pulse Rate 72 94 H 77 Respiratory Rate 20 15 Blood Pressure 133/73 Pulse Oximetry 97 96 Oxygen Delivery Method Room Air Room Air 04/16/23 19:10 04/16/23 19:20 04/16/23 19:20 Temperature Pulse Rate 80 Respiratory Rate 20 Blood Pressure 111/77 111/84 Pulse Oximetry 97 Oxygen Delivery Method Room Air 04/16/23 19:30 04/16/23 19:31 04/16/23 19:31 Temperature Pulse Rate 85 83 Respiratory Rate 20 18 Blood Pressure 151/90 H Pulse Oximetry 97 97 Oxygen Delivery Method Room Air Room Air 04/16/23 19:40 04/16/23 19:40 04/16/23 19:50 Temperature Pulse Rate 97 H 83 Respiratory Rate 18 23 Blood Pressure 133/77 Pulse Oximetry 97 96 Oxygen Delivery Method Room Air Room Air 04/16/23 19:50 04/16/23 20:00 04/16/23 20:00 Temperature Pulse Rate 80 Respiratory Rate 19 Blood Pressure 137/92 H 137/84 Pulse Oximetry 97 Oxygen Delivery Method 04/16/23 20:27 04/16/23 20:55 Temperature 98.8 F Pulse Rate 76 Respiratory Rate 20 Blood Pressure 142/83 H Pulse Oximetry 96 Oxygen Delivery Method Room Air Oxygen Delivery Method Room Air Narrative Exam Narrative: GEN: no acute distress CV: irregular, no murmurs PULM: clear bilaterally ABD: soft, nontender, nondistended, no organomegaly EXT: warm and well perfused with no edema Objective Labs 04/16/23 17:07 04/16/23 17:07 Labs: Laboratory Results - last 24 hr 04/16/23 04/16/23 04/16/23 17:07 17:07 17:07 WBC 9.4 RBC 4.95 Hgb 15.8 Hct 44.7 MCV 90.2 MCH 31.8 MCHC 35.3 RDW 13.6 Plt Count 269 Neut % (Auto) 70.3 Lymph % (Auto) 15.7 L [place] % (Auto) 12.7 Eos % (Auto) 0.6 L Baso % (Auto) 0.7 Neut # (Auto) 6600 Lymph # (Auto) 1500 [place] # (Auto) 1200 H Eos # (Auto) 100 Baso # (Auto) 100 PT 12.3 INR 1.1 D-Dimer < 215 Sodium 135 L Potassium 4.0 Chloride 102 Carbon Dioxide 25 BUN 16 Creatinine 0.89 Estimated GFR > 60 BUN/Creatinine Ratio 18.0 Glucose 142 H Calcium 8.9 Total Bilirubin 0.8 AST 37 ALT 29 Alkaline Phosphatase 94 Total Creatine Kinase 390 H CK-MB (CK-2) TNP CK-MB (CK-2) Rel Index TNP Troponin I < 0.012 NT-Pro-B Natriuret Pep 60 Total Protein 7.7 Albumin 4.3 Globulin 3.4 Albumin/Globulin Ratio 1.3 Lipase 68 TSH 04/16/23 17:07 WBC RBC Hgb Hct MCV MCH MCHC RDW Plt Count Neut % (Auto) Lymph % (Auto) [place] % (Auto) Eos % (Auto) Baso % (Auto) Neut # (Auto) Lymph # (Auto) [place] # (Auto) Eos # (Auto) Baso # (Auto) PT INR D-Dimer Sodium Potassium Chloride Carbon Dioxide BUN Creatinine Estimated GFR BUN/Creatinine Ratio Glucose Calcium Total Bilirubin AST ALT Alkaline Phosphatase Total Creatine Kinase CK-MB (CK-2) CK-MB (CK-2) Rel Index Troponin I NT-Pro-B Natriuret Pep Total Protein Albumin Globulin Albumin/Globulin Ratio Lipase TSH 2.55 Assessment & Plan Assessment & Plan narrative: 1. Atrial fibrillation with RVR -new diagnosis for patient -per family he has not taken adhd med for three weeks -TSH normal, troponin negative -attempted cardioversion x3 in ED was not successful -dilt gtt at 5cc/hr controlled rate -will start PO dilt at 30mg q6h and attempt to wean off dilt -keep on telemetry -ordered for ECHO -chadsvasc2 score of 1, consider anticoagulation/antiplatelet on discharge 2. ADHD -stopped lisdexamfetamine three weeks ago per family I have discussed the plan and obtained history from the patient and family. I have discussed plan of care with ED physician and bedside nurse. I have reviewed labs, imaging. CODE: Full Proxy: Gabriella Blackman, spouse Quality [facility] - Meds 'Current medications' to include all prescriptions, [id number] products, herbals, cannabis/cannabidiol products, and vitamin/mineral/dietary (nutritional) supplements. I have utilized all available resources to obtain, update, or review the patient?s current medications. [If Yes, STOP here]: Yes
--- NOTE | 2023-04-16 21:38 | PC.NURSE ---
Addendum entered by Leda Pineda R.N. 04/17/23 00:18: Pt HR in the mid-high 50s. made aware. Stated baseline heart rate is around 60. All other vitals stable. Pt currently resting and in no distress. Ordered to skip midnight dose of cardizem. Addendum entered by Leda Pineda R.N. 04/16/23 22:56: Around 2253, pt converted from Afib CVR to NSR. MD contacted. No new orders given. Original Note: Pt arrived to unit around 2030. A&OX4, calm/cooperative, in no acute distress and no pain. Vitals signs stable, including heart being WNL. Pt currently resting in bed.
--- NOTE | 2023-04-16 21:40 | DI.RAD.S_ITS ---
PROCEDURE: XR CHEST 1V INDICATIONS: new afib TECHNIQUE: One view of the chest was acquired. COMPARISON: None. FINDINGS: Surgical changes and devices: None. Lungs and pleura: Lungs are clear. No pleural effusions or pneumothorax. Mediastinum: Mediastinal contours appear normal. Heart size is normal. Bones and chest wall: No suspicious bony lesions. Overlying soft tissues appear unremarkable. IMPRESSION: 1. No acute cardiopulmonary disease. Dictated by: Shahzad Bryan M.D. on 04/16/2023 at 23:18 Approved by: Shahzad Bryan M.D. on 04/16/2023 at 23:18
[2023-04-16] MEDS: APIXABAN 5 MG TABLET PO (23:25)
[2023-04-17] VITALS (23 sets, daily range): BP systolic 108–131; BP diastolic 71–85; PULSE 50–82; RESP 11–28; TEMP 36.6–36.9; O2SAT 96–98
[2023-04-17 04:25] LABS: Add Manual Diff / Slide Review NO; Basophils Absolute Auto 100 /uL (0-100); Basophils Percent Auto 1.1 % (0-2); Eosinophils Absolute Auto 100 /uL (0-450); Eosinophils Percent Auto 2.1 % (2-4); Hemoglobin 14.6 g/dL (13.5-17.5); Lymphocytes Absolute Auto 1100 /uL (1100-4500); Lymphocytes Percent Auto 17.7 % (25-40); Mean Corpuscular HGB Conc 34.7 % (30-36); Mean Corpuscular Hemoglobin 31.6 PG (26-34); Monocytes Absolute Auto 1000 /uL (0-900); Monocytes Percent Auto 15.6 % (3-14); Neutrophils Absolute Auto 4000 /uL (1500-7000); Neutrophils Percent Auto 63.5 % (50-75); Platelet Count 245 X10^3/uL (150-400); Red Blood Cell Count 4.62 X10^6/uL (4.5-5.9); Red Cell Distribution Width 13.7 % (11.6-14.8); White Blood Cell Count 6.4 X10^3/uL (4.5-11.0)
[2023-04-17 04:31] LABS: BUN Creatinine Ratio 17.9 (6-22); Blood Urea Nitrogen 15 mg/dL (9-20); Calcium 8.5 mg/dL (8.4-10.2); Carbon Dioxide 25 mmol/L (22-32); Chloride 106 mmol/L (98-107); Estimated Glomerular Filt Rate > 60 mL/min (>60); Glucose 98 mg/dL (70-100); HEMOLYSIS 17 (0-50); Sodium 137 mmol/L (137-145)
[2023-04-17 05:38] LABS: MRSA (Nasal) PCR Not Detected (Not Detect)
[2023-04-17] MEDS: APIXABAN 5 MG TABLET PO (08:44)
[2023-04-17 11:19] LABS: Magnesium 2.3 mg/dL (1.6-2.3)
[2023-04-17] MEDS: dilTIAZem 30 MG TABLET PO (11:19)
--- NOTE | 2023-04-17 12:01 | P.DS_ITS ---
History of Present Illness History of Present Illness Date Patient Seen: 04/16/23 Time Patient Seen: 20:00 Chief complaint: cardiac issues Narrative: Mr. High is a 57M with PMH ADHD who presents to the hospital with lightheadedness and palpitations. He notes that these symptoms began today. He had no chest pain, no shortness of breath. No lower extremity swelling. He does drink 2-3 alcoholic drinks per day. In the ED workup was done, vitals notable for afebrile, heart rate in the 160s, blood pressure 110s/90s, sats 97% on room air. Labs reviewed and notable for WBC 9.4, hgb 15.8. creatinine 0.89. EKG showed heart rate in the 160s in atrial fibrillation with lateral ST depressions. Cardioversion was attempted x3 but was unsuccessful. He was ordered for push dose diltiazem and started on diltiazem drip and his heart rate improved to the 80s, and he remained in atrial fibrillation. He was admitted for further treatment. Discharge Providers Provider Date of admission: 04/16/23 18:08 Discharge Date: 04/17/23 Primary care physician: Tiff Whipple DO Discharge provider: Teo Tavares DO Summary Hospital Course Discharge Diagnosis: 1. Atrial fibrillation with RVR -new diagnosis for patient, risk factors 4 alcohol drinks per night and SHANTE but he uses CPAP -per family he has not taken adhd med for three weeks -TSH normal, troponin negative -attempted cardioversion x3 in ED was not successful -dilt gtt at 5cc/hr converted to NSR, then transitioned to po dilt 180 XL daily -keep on telemetry -ECHO showed EF 60-65%, NSR during exam, no sig valvular abnormalities or dilated atria -chadsvasc2 score of 1 for HTN, started on 4 weeks of po eliquis due to post- cardioversion -will get referral to see cardiology from PCP for holter monitor placement 2. ADHD -stopped lisdexamfetamine three weeks ago per family Hospital Course: Admitted for new-onset A-fib RVR which did not respond to CV attempts x3 in ED. Put on dilt drip at 5/hr which converted him to NSR. Transitioned to po dilt 180 XL daily. Echo was normal. Put on 4 weeks of po eliquis due to post- cardioversion prophylaxis. [id number] of 1 due to HTN so will likely not need chronic anticaog. Discussed limited his alcohol intake to 2 drinks per day instead of 4 and continuing compliance with his CPAP. He will f/u with cardiology in clinic for holter monitor. Time Spent with Patient Time spent: Greater than 30 minutes Exam Vital Signs (past 8 hours): - 04/17/23 05:00 04/17/23 04:30 04/17/23 05:00 Temperature Pulse Rate 53 L 55 L Respiratory Rate 12 12 Blood Pressure 110/76 110/76 Pulse Oximetry 97 97 Oxygen Delivery Method 04/17/23 05:00 04/17/23 06:00 04/17/23 06:14 Temperature 98.5 F Pulse Rate 50 L 56 L 54 L Respiratory Rate 17 15 Blood Pressure 116/81 116/81 Pulse Oximetry 97 98 Oxygen Delivery Method 04/17/23 05:30 04/17/23 06:00 04/17/23 06:00 Temperature Pulse Rate 72 53 L Respiratory Rate 26 H 13 Blood Pressure 116/81 Pulse Oximetry 96 97 Oxygen Delivery Method 04/17/23 06:30 04/17/23 07:00 04/17/23 07:00 Temperature 98 F Pulse Rate 54 L 63 Respiratory Rate 13 23 Blood Pressure 129/85 Pulse Oximetry 96 96 Oxygen Delivery Method 04/17/23 07:00 04/17/23 07:30 04/17/23 08:00 Temperature Pulse Rate 71 71 Respiratory Rate 18 23 Blood Pressure Pulse Oximetry 97 96 Oxygen Delivery Method Room Air 04/17/23 08:02 04/17/23 08:02 04/17/23 08:30 Temperature Pulse Rate 70 82 Respiratory Rate 19 28 H Blood Pressure 131/75 Pulse Oximetry 97 96 Oxygen Delivery Method 04/17/23 09:00 04/17/23 11:19 Temperature Pulse Rate 73 73 Respiratory Rate 20 Blood Pressure 131/75 Pulse Oximetry 97 Oxygen Delivery Method Oxygen Delivery Method Room Air Narrative Exam Narrative: GEN: no acute distress CV: regular, no murmurs PULM: clear bilaterally ABD: soft, nontender, nondistended, no organomegaly EXT: warm and well perfused with no edema Objective Labs 04/17/23 04:00 04/17/23 04:00 Labs: Laboratory Results - last 24 hr 04/16/23 04/16/23 04/16/23 17:07 17:07 17:07 WBC 9.4 RBC 4.95 Hgb 15.8 Hct 44.7 MCV 90.2 MCH 31.8 MCHC 35.3 RDW 13.6 Plt Count 269 Neut % (Auto) 70.3 Lymph % (Auto) 15.7 L [place] % (Auto) 12.7 Eos % (Auto) 0.6 L Baso % (Auto) 0.7 Neut # (Auto) 6600 Lymph # (Auto) 1500 [place] # (Auto) 1200 H Eos # (Auto) 100 Baso # (Auto) 100 PT 12.3 INR 1.1 D-Dimer < 215 Sodium 135 L Potassium 4.0 Chloride 102 Carbon Dioxide 25 BUN 16 Creatinine 0.89 Estimated GFR > 60 BUN/Creatinine Ratio 18.0 Glucose 142 H Calcium 8.9 Magnesium Total Bilirubin 0.8 AST 37 ALT 29 Alkaline Phosphatase 94 Total Creatine Kinase 390 H CK-MB (CK-2) TNP CK-MB (CK-2) Rel Index TNP Troponin I < 0.012 NT-Pro-B Natriuret Pep 60 Total Protein 7.7 Albumin 4.3 Globulin 3.4 Albumin/Globulin Ratio 1.3 Lipase 68 TSH Nasal Screen MRSA (PCR) 04/16/23 04/16/23 04/17/23 17:07 20:42 04:00 WBC 6.4 RBC 4.62 Hgb 14.6 Hct 42.0 MCV 91.0 MCH 31.6 MCHC 34.7 RDW 13.7 Plt Count 245 Neut % (Auto) 63.5 Lymph % (Auto) 17.7 L [place] % (Auto) 15.6 H Eos % (Auto) 2.1 Baso % (Auto) 1.1 Neut # (Auto) 4000 Lymph # (Auto) 1100 [place] # (Auto) 1000 H Eos # (Auto) 100 Baso # (Auto) 100 PT INR D-Dimer Sodium Potassium Chloride Carbon Dioxide BUN Creatinine Estimated GFR BUN/Creatinine Ratio Glucose Calcium Magnesium Total Bilirubin AST ALT Alkaline Phosphatase Total Creatine Kinase CK-MB (CK-2) CK-MB (CK-2) Rel Index Troponin I NT-Pro-B Natriuret Pep Total Protein Albumin Globulin Albumin/Globulin Ratio Lipase TSH 2.55 Nasal Screen MRSA (PCR) Not detected 04/17/23 04/17/23 04:00 04:00 WBC RBC Hgb Hct MCV MCH MCHC RDW Plt Count Neut % (Auto) Lymph % (Auto) [place] % (Auto) Eos % (Auto) Baso % (Auto) Neut # (Auto) Lymph # (Auto) [place] # (Auto) Eos # (Auto) Baso # (Auto) PT INR D-Dimer Sodium 137 Potassium 4.0 Chloride 106 Carbon Dioxide 25 BUN 15 Creatinine 0.84 Estimated GFR > 60 BUN/Creatinine Ratio 17.9 Glucose 98 Calcium 8.5 Magnesium 2.3 Total Bilirubin AST ALT Alkaline Phosphatase Total Creatine Kinase CK-MB (CK-2) CK-MB (CK-2) Rel Index Troponin I NT-Pro-B Natriuret Pep Total Protein Albumin Globulin Albumin/Globulin Ratio Lipase TSH Nasal Screen MRSA (PCR) [facility] Medical History Anxiety (12/25/17) Asperger's disorder (01/29/18) Chicken pox (1968) Fatigue Hearing loss (2010) Hypertension (11/24/16) Hypertension (2006) Iron deficiency anemia due to chronic blood loss Obstructive sleep apnea of adult Plantar warts Platelet donor Snoring Surgical History Status post biopsy (05/29/15) Family History Father Age: 94 Hypertension Prostate cancer Multiple myeloma Melanoma Mother Age: 89 Heart disease Hypertension Breast cancer CAD (coronary artery disease) ST elevation myocardial infarction (STEMI), unspecified artery Pneumonia due to infectious organism, unspecified laterality, unspecified part of lung Uncomplicated asthma, unspecified asthma severity Grandfather Cancer Grandmother Renal failure Grandfather Heart attack Grandmother Lung cancer Secondhand smoke exposure Nonsmoker Sister No problems noted. 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 Sailing, skiing) Smoking Status: Never smoker Tobacco: How many years used: 0 quit status: quit date established (Never Started) second hand exposure: No alcohol intake: current substance use type: does not use Discharge Plan Discharge Plan Patient Disposition: Home Discharge orders & Medications Prescriptions: New diltiazem HCl 180 mg capsule,extended release 24 hr 180 mg PO DAILY Qty: 30 1RF Continued bupropion HCl 300 mg tablet extended release 24 hr 300 mg PO QAM Qty: 90 1RF (DME) Respironics Dreamstation CPAP Qty: 1 Dose Instruction: As directed Patient Comments: Pressure: 6-12 cmH2O DME: [place] Rx Instructions: As directed No Action Eliquis 5 mg tablet 5 mg PO BID 30 Days Qty: 60 1RF lisinopril 10 mg tablet 15 mg PO DAILY Qty: 135 0RF Rx Instructions: Takes in the evenings Follow up/Referrals: Tiff Whipple DO [Primary Care Provider] - 1 Week Visit Report/Discharge Packet Stand Alone Forms: Patient Portal/API, Stroke Signs & Symptoms Discharge Data Primary Care Provider: Tiff Whipple Attending Provider: León Suazo Admit Date/Time: 04/16/23 18:08 Discharges patient from system. Discharge Date/Time: 04/17/23 12:00
== END 2023-04-17 12:00 | disposition home or self-care (01) ==
LOC: ED 17:02 → AC 18:08 → ICU 20:11
PROVIDERS: Internal Medicine; Student in an Organized Health Care Education/Training Program; Admitting Provider Internal Medicine; Emergency Provider Emergency Medicine; PCP Family Medicine; Referring Provider Emergency Medicine; Visit Provider Internal Medicine
DX: R00.2 Palpitations (principal); R06.02 Shortness of breath; R42 Dizziness and giddiness; R53.1 Weakness; F90.9 Attention-deficit hyperactivity disorder, unspecified type
CPT/HCPCS: 36415; 71045; 80048; 80053; 82550; 83690; 83735; 83880; 84443; 84484; 85025; 85379; 85610; 87797; 92960; 93005; 93306; 96365; 96366; 96375; 99152; 99285; G0378; J2704

== ENCOUNTER 2023-08-11 08:46 | Day surgery (SDC) | payer BC, SELFPAY ==
[2023-04-16 20:29] VITALS: BMI 25.4
--- NOTE | 2023-08-11 | PATH_ITS ---
[facility] Accession Number: [id number] No. of containers..01 Tissue . 01 Material submitted: . colon - DESCENDING COLON POLYP . 01 Diagnosis: Descending Colon Polyp: Hyperplastic polyp. MRV 08/13/2023 1153 Local . 01 Electronically signed: . Teo Carolina MD, PhD, Pathologist NPI- [id number] . 01 Gross description: . DESCENDING COLON POLYP: Received in formalin are multiple fragment(s) of altman, soft tissue measuring 0.1 x 0.1 x 0.1 cm to 0.3 x 0.2 x 0.2 cm submitted entirely in 1 cassette(s) /SRINIVASA 08/12/2023 1926 Local . 01 Pathologist provided ICD-10: K63.5 . 01 CPT . 364879 Specimen Comment: A courtesy copy of this report has been sent to [phone] Performed at: 01 [facility] [address] [place] [address], [place], [place] [id number] MD Shahzad Zimmerman MD Phone: [phone]
[2023-08-11] MEDS: LACTATED RINGERS 1,000 ML 84 ML IV (09:01)
[2023-08-11 09:08] VITALS: BP 132/87; PULSE 85; RESP 16; TEMP 36.4; O2SAT 100; BMI 23.6
--- NOTE | 2023-08-11 09:43 | PM.HP.1 ---
History of Present Illness History of Present Illness Date Patient Seen: 08/11/23 Time Patient Seen: 09:43 Chief complaint: SDC Narrative: 58 year old man with a personal history of colonic polyps here for screening colonoscopy. Last colonoscopy was approximately 5 years ago and significant for benign polyps. No family history of intestinal malignancy. No abdominal concerns today including pain, unintentional weight loss blood per rectum, anorexia. [facility] Medical History Platelet donor Fatigue Iron deficiency anemia due to chronic blood loss Obstructive sleep apnea of adult Snoring Plantar warts Hearing loss (2010) Chicken pox (1968) Hypertension (2006) Asperger's disorder (01/29/18) Hypertension (11/24/16) Anxiety (12/25/17) Surgical History Status post biopsy (05/29/15) Family History Father Age: 94 Hypertension Prostate cancer Multiple myeloma Melanoma Mother Age: 89 Heart disease Hypertension Breast cancer CAD (coronary artery disease) ST elevation myocardial infarction (STEMI), unspecified artery Pneumonia due to infectious organism, unspecified laterality, unspecified part of lung Uncomplicated asthma, unspecified asthma severity Grandfather Cancer Grandmother Renal failure Grandfather Heart attack Grandmother Lung cancer Secondhand smoke exposure Nonsmoker Sister No problems noted. 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 Sailing, skiing) Smoking Status: Never smoker Tobacco: How many years used: 0 quit status: quit date established (Never Started) second hand exposure: No alcohol intake: former substance use type: does not use Meds Home Medications and Allergies Home Medications Medication Instructions Recorded Confirmed Type Respironics Dreamstation CPAP #1 ea 03/24/19 04/17/23 History bupropion HCl 300 mg 24 hr tablet, 300 mg PO QAM #90 tabs 11/21/22 08/11/23 Rx extended release lisinopril 10 mg tablet 15 mg (1.5 x 10 mg) PO DAILY #135 08/10/23 08/11/23 Rx tabs diltiazem HCl 180 mg capsule,24 120 mg PO DAILY 08/11/23 08/11/23 History hr,extended release magnesium oxide 400 mg (241.3 mg 400 mg PO DAILY 08/11/23 08/11/23 History magnesium) tablet Allergies Allergy/AdvReac Type Severity Reaction Status Date / Time No Known Drug Allergies Allergy Unknown Verified 08/11/23 09:16 [NO KNOWN DRUG ALLERGIES] Exam Vital Signs (past 8 hours): - 08/11/23 09:08 Temperature 97.6 F Pulse Rate 85 Respiratory Rate 16 Blood Pressure 132/87 Pulse Oximetry 100 Oxygen Delivery Method Room Air Oxygen Delivery Method Room Air Narrative Exam Narrative: General adult man alert oriented no acute distress Assessment & Plan Assessment and plan (1) Personal history of colonic polyps: Status: Acute Assessment & Plan narrative: The patient requires colorectal screening and colonoscopy is recommended. Technical details were discussed. Risks, benefits, alternatives explained. Risks including but not limited to myocardial infarction, aspiration, bleeding, pain, missed lesion, incomplete examination, need for further radiographic studies, colonic perforation, and need for major abdominal surgery were discussed. All questions were answered to their satisfaction, and they are in agreement with this plan.
--- NOTE | 2023-08-11 09:45 | PM.OP.COLON ---
Operative Date/Time/Diagnoses Date of procedure: 08/11/23 Time of procedure: 09:45 Pre-op diagnosis: Personal history of colonic polyps Procedure & Clinicians Study performed: Colonoscopy Same procedure as scheduled: Yes Indications: 58-year-old man personal history of colonic polyps here for colorectal screening Surgeon: Damian Tam Procedure Notes Procedure in detail: The history and physical was performed/updated and the patient is ASA class is 2. The procedure was discussed in detail with the patient. Potential risks complications including infection, bleeding, missed diagnosis, perforation, need for surgery, and were explained. Their questions were answered and informed consent was obtained. Patient was brought to the procedure room and placed standard monitoring equipment. The patient's vital signs were monitored continuously throughout the entire procedure. Prior to starting time-out was performed. The patient was placed in the left lateral recumbent position. Procedural sedation was administered by anesthesia. Examination began with a thorough inspection of the perianal area there was no evidence of fissures, fistulae, external hemorrhoids or cutaneous malignancy. The colonoscopy scope was then placed into the anal canal and was advanced to the cecum, which was identified by the ileocecal valve, the appendiceal orifice and the confluence of the taenia. The scope was then slowly withdrawn examining colon thoroughly in all directions, irrigating it of any residual stool. Descending colon-flat 5 mm-8 mm polyp at 50 cm from the anal verge. Tattoo ink and saline were injected at the site of the polyp in order to elevate it. Despite lifting we still could not secure a snare around the polyp due to its extremely flat nature. We then used the biopsy forceps to remove the polyp in piecemeal the entirety of the polyp was removed. Rectum-grade 1 internal hemorrhoids The patient tolerated the procedure well. They will be discharged once criteria are met. The prep was of good/excellent quality. The withdrawl time was 50 minutes. Specimen(s): other (Descending colonic polyp) Impression: Colonic polyp x1 Post-procedure Plan for aftercare: Follow-up is dependent on pathology findings. Disposition: same day surgery
[2023-08-11 10:23] VITALS: BP 96/69; PULSE 59; RESP 12; TEMP 36.4; O2SAT 98
[2023-08-11 10:29] VITALS: BP 100/67; PULSE 63; RESP 14; O2SAT 98
[2023-08-11 10:33] VITALS: BP 99/62; PULSE 79; RESP 17; TEMP 36.5; O2SAT 97
[2023-08-11 10:44] VITALS: BP 108/72; PULSE 85; RESP 16; TEMP 36.3; O2SAT 99
--- NOTE | 2023-08-11 10:55 | SUR.PHASEII ---
Pt states he feels better and that he is ready for a donut and ready to go home. Pt to be discharged with his . Pt states he understands discharge instructions.
== END 2023-08-11 11:02 | disposition home or self-care (01) ==
PROVIDERS: PCP Family Medicine; Referring Provider Surgery; Visit Provider Surgery
PROC: 0DJD8ZZ Inspection of Lower Intestinal Tract, Via Natural or Artificial Opening Endoscopic (ICD-10-PCS; CPT 45378; principal; 2023-08-11 09:45)
DX: Z12.11 Encounter for screening for malignant neoplasm of colon (principal); Z86.010 Personal history of colon polyps; K64.0 First degree hemorrhoids
CPT/HCPCS: 45381; 45380; J2704

== ENCOUNTER → 2023-08-13 08:59 | Outpatient (CLI) | payer BC, SELFPAY ==
[2023-04-16 20:29] VITALS: BMI 25.4
[2023-08-13 10:34] LABS: Hematocrit 40.6 % (41-53); Hemoglobin 14.2 g/dL (13.5-17.5); Mean Corpuscular Hemoglobin 31.4 PG (26-34); Mean Corpuscular Volume 89.8 fL (80-100); Platelet Count 257 X10^3/uL (150-400); Red Blood Cell Count 4.52 X10^6/uL (4.5-5.9); Red Cell Distribution Width 12.9 % (11.6-14.8)
[2023-08-13 10:46] LABS: Alanine Aminotransferase 31 IU/L (<50); Albumin 4.2 g/dL (3.5-5.0); Albumin Globulin Ratio 1.6 (1.0-2.8); Alkaline Phosphatase 88 U/L (38-126); Aspartate Aminotransferase 30 IU/L (17-59); BUN Creatinine Ratio 13.1 (6-22); Bilirubin Total 0.5 mg/dL (0.2-1.3); Blood Urea Nitrogen 11 mg/dL (9-20); Calcium 9.8 mg/dL (8.4-10.2); Carbon Dioxide 27 mmol/L (22-32); Chloride 101 mmol/L (98-107); Cholesterol 137 mg/dL (140-199); Estimated Glomerular Filt Rate > 60 mL/min (>60); Globulin 2.6 g/dL (1.7-4.1); Glucose 86 mg/dL (70-100); HDL Cholesterol 40 mg/dL (40-60); HEMOLYSIS < 15 (0-50); LDL Cholesterol Calculated 78 mg/dL (<100); Potassium 4.4 mmol/L (3.4-5.1); Sodium 137 mmol/L (137-145); Total Protein 6.8 g/dL (6.3-8.2); Triglycerides 95 mg/dL (35-150)
[2023-08-13 10:52] LABS: High Sensitivity CRP - Cardiac 0.8 mg/L (1.0-3.0)
[2023-08-13 11:20] LABS: Thyroid Stimulating Hormone 1.71 uIU/mL (0.47-4.68)
== END ==
PROVIDERS: PCP Family Medicine; Referring Provider Family Medicine; Visit Provider Family Medicine
DX: Z00.00 Encounter for general adult medical examination without abnormal findings (principal); E78.5 Hyperlipidemia, unspecified; R00.2 Palpitations; I48.91 Unspecified atrial fibrillation; I10 Essential (primary) hypertension; Z52.008 Unspecified donor, other blood
CPT/HCPCS: 36415; 80053; 80061; 84153; 84443; 85027; 86140

== ENCOUNTER → 2024-05-17 08:32 | Outpatient (CLI) | payer BC, SELFPAY ==
[2023-04-16 20:29] VITALS: BMI 25.4
--- NOTE | 2024-05-17 08:33 | DI.MRI.S_ITS ---
PROCEDURE: MR CERVICAL SPINE WO CON INDICATIONS: Radiculopathy, cervical region TECHNIQUE: Noncontrast sagittal T1 spin echo and T2 fast spin echo, sagittal STIR, foraminal oblique sagittal T2 fast spin echo, and axial gradient echo or T2 fast spin echo through the cervical spine. COMPARISON: None. FINDINGS: Image quality: Excellent. Alignment and Curvature: There is normal bony alignment. Bone Marrow: Marrow demonstrates normal overall signal. Spinal Cord: Visualized spinal cord has normal size and signal. No cerebellar tonsillar herniation. Paraspinous Soft Tissues: No paravertebral masses. Prevertebral soft tissues are normal in thickness. Intervertebral discs: Multilevel disc desiccation and multilevel disc height loss, worse at C5-C6. C2-C3: Normal appearance. C3-C4: No spinal canal stenosis or foraminal stenosis. There is bilateral facet arthropathy and uncovertebral joint arthropathy. C4-C5: No spinal canal stenosis or foraminal stenosis. There is bilateral facet arthropathy and uncovertebral joint arthropathy. C5-C6: Dorsal disc osteophyte complex mildly effaces the ventral thecal sac. Moderate bilateral foraminal stenosis. There is bilateral facet arthropathy and uncovertebral joint arthropathy. C6-C7: No spinal canal stenosis or foraminal stenosis. There is bilateral facet arthropathy and uncovertebral joint arthropathy. C7-T1: No foraminal stenosis or spinal canal stenosis. Bilateral facet arthropathy and uncovertebral joint arthropathy. IMPRESSION: 1. There is multilevel degenerative disc disease as described above. No spinal canal stenosis. 2. There is moderate bilateral foraminal stenosis at C5-C6. Dictated by: Julio Funk M.D. on 05/17/2024 at 9:54 Approved by: Julio Funk M.D. on 05/17/2024 at 10:07
== END ==
PROVIDERS: PCP Family Medicine; Referring Provider Physical Medicine & Rehabilitation; Visit Provider Physical Medicine & Rehabilitation
DX: M50.122 Cervical disc disorder at C5-C6 level with radiculopathy (principal); M48.02 Spinal stenosis, cervical region
CPT/HCPCS: 72141

== ENCOUNTER → 2024-08-15 07:03 | Outpatient (CLI) | payer BC, SELFPAY ==
[2023-04-16 20:29] VITALS: BMI 25.4
[2024-08-15 08:54] LABS: Add Manual Diff / Slide Review NO; Basophils Absolute Auto 0 /uL (0-100); Basophils Percent Auto 0.4 % (0-2); Eosinophils Absolute Auto 100 /uL (0-450); Eosinophils Percent Auto 1.6 % (2-4); Hematocrit 41.3 % (41-53); Hemoglobin 14.1 g/dL (13.5-17.5); Lymphocytes Absolute Auto 1500 /uL (1100-4500); Lymphocytes Percent Auto 26.3 % (25-40); Mean Corpuscular Hemoglobin 31.1 PG (26-34); Mean Corpuscular Volume 91.6 fL (80-100); Monocytes Absolute Auto 800 /uL (0-900); Monocytes Percent Auto 14.5 % (3-14); Neutrophils Absolute Auto 3200 /uL (1500-7000); Neutrophils Percent Auto 57.2 % (50-75); Platelet Count 281 X10^3/uL (150-400); Red Blood Cell Count 4.51 X10^6/uL (4.5-5.9); Red Cell Distribution Width 12.9 % (11.6-14.8); White Blood Cell Count 5.6 X10^3/uL (4.5-11.0)
[2024-08-15 09:15] LABS: Alanine Aminotransferase 43 IU/L (<50); Albumin Globulin Ratio 1.6 (1.0-2.8); Alkaline Phosphatase 93 U/L (38-126); Aspartate Aminotransferase 38 IU/L (17-59); BUN Creatinine Ratio 19.8 (6-22); Bilirubin Total 0.5 mg/dL (0.2-1.3); Blood Urea Nitrogen 16 mg/dL (9-20); Calcium 9.5 mg/dL (8.4-10.2); Carbon Dioxide 26 mmol/L (22-32); Chloride 104 mmol/L (98-107); Cholesterol 155 mg/dL (140-199); Estimated Glomerular Filt Rate > 60 mL/min (>60); Globulin 2.5 g/dL (1.7-4.1); Glucose 85 mg/dL (70-100); HDL Cholesterol 44 mg/dL (40-60); HEMOLYSIS < 15 (0-50); LDL Cholesterol Calculated 93 mg/dL (<100); Potassium 4.2 mmol/L (3.4-5.1); Sodium 137 mmol/L (137-145); Total Protein 6.5 g/dL (6.3-8.2); Triglycerides 90 mg/dL (35-150)
[2024-08-15 09:38] LABS: TSH w/ Reflex to FT4 5.53 uIU/mL (0.47-4.68)
[2024-08-15 09:40] LABS: Prostate Specific Antigen Scrn 0.728 ng/mL (0.1-4.0)
[2024-08-15 10:07] LABS: Free T4, Direct Thyroxine 0.86 ng/dL (0.78-2.19)
== END ==
PROVIDERS: PCP Family Medicine; Referring Provider Family Medicine; Visit Provider Family Medicine
DX: Z12.5 Encounter for screening for malignant neoplasm of prostate (principal); I48.91 Unspecified atrial fibrillation; E78.5 Hyperlipidemia, unspecified; I10 Essential (primary) hypertension; Z79.899 Other long term (current) drug therapy
CPT/HCPCS: 36415; 80053; 80061; 84439; 84443; 85025; G0103

== ENCOUNTER → 2024-08-24 13:44 | Outpatient (CLI) | payer BC, SELFPAY ==
[2023-04-16 20:29] VITALS: BMI 25.4
--- NOTE | 2024-08-24 13:45 | DI.RAD.S_ITS ---
PROCEDURE: XR CHEST 2V INDICATIONS: eval 1.5cm mass R inf sternum TECHNIQUE: 2 views of the chest were acquired. COMPARISON: [facility], CR, XR CHEST 1V, 04/16/2023, 21:39. FINDINGS: Heart, mediastinum and pulmonary vascular: Heart is normal in size and configuration. Mediastinum is unremarkable. Pulmonary vascular is normal. Lungs: Clear Pleural spaces: Normal-no effusions or pneumothorax. Bones and soft tissues: Normal IMPRESSION: Normal chest. Parasternal mass not appreciated. Suggest chest CT-soft tissue mass are typically occult on plain film . Dictated by: Camden Reaves M.D. on 08/25/2024 at 12:13 Approved by: Camden Reaves M.D. on 08/25/2024 at 12:14
== END ==
PROVIDERS: PCP Family Medicine; Referring Provider Family Medicine; Visit Provider Family Medicine
DX: M89.8X8 Other specified disorders of bone, other site (principal)
CPT/HCPCS: 71046

== ENCOUNTER → 2024-08-30 | Outpatient (CLI) | payer BC, SELFPAY ==
[2023-04-16 20:29] VITALS: BMI 25.4
--- NOTE | 2024-08-30 07:02 | DI.US.S_ITS ---
PROCEDURE: US CHEST/ABDOMEN LIMITED INDICATIONS: EVAL MASS OF RT INFERIOR STERNUM/VERY FIRM TECHNIQUE: Real-time scanning was performed of the lower chest/abdominal wall and right axilla, with image documentation. COMPARISON: [facility], CR, XR CHEST 2V, 08/24/2024, 12:50. [facility], CR, XR CHEST 1V, 04/16/2023, 21:39. FINDINGS: Targeted ultrasound at the right inferior sternum palpable abnormality. There is an abnormality measuring 1.2 cm. The abnormality is at least partially calcified with posterior acoustic shadowing. There is adjacent blood flow. No internal vascularity is seen. Just deep to the skin. Targeted right axillary ultrasound. No enlarged lymph nodes. IMPRESSION: Right inferior sternum palpable abnormality corresponds to a partially calcified abnormality measuring 1.2 cm. Possibly an up-turned xiphoid process. Recommend CT chest with IV contrast for further evaluation. No enlarged right axillary lymph nodes. Dictated by: Zurdo Reynolds M.D. on 08/30/2024 at 7:57 Approved by: Zurdo Reynolds M.D. on 08/30/2024 at 8:07
[2024-08-30 09:12] LABS: Free T3, Triiodothyronine Free 4.74 pg/mL (2.77-5.27); Free T4, Direct Thyroxine 0.92 ng/dL (0.78-2.19)
[2024-08-30 09:26] LABS: Thyroid Stimulating Hormone 3.87 uIU/mL (0.47-4.68)
[2024-08-31 07:40] LABS: Thyroid Peroxidase Antibodies 13 IU/mL (0-34)
[2024-09-02 19:39] LABS: Anti Thyroglobulin Antibody <1.0 IU/mL (0.0-0.9)
== END ==
PROVIDERS: PCP Family Medicine; Referring Provider Family Medicine; Visit Provider Family Medicine
DX: M89.8X8 Other specified disorders of bone, other site (principal); R93.89 Abnormal findings on diagnostic imaging of other specified body structures; R00.1 Bradycardia, unspecified; R79.89 Other specified abnormal findings of blood chemistry
CPT/HCPCS: 36415; 76705; 84439; 84443; 84481; 86376; 86800

== ENCOUNTER → 2025-08-25 07:09 | Outpatient (CLI) | payer BC, SELFPAY ==
[2023-04-16 20:29] VITALS: BMI 25.4
[2025-08-25 07:36] LABS: Add Manual Diff / Slide Review NO; Hematocrit 40.0 % (41-53); Hemoglobin 13.7 g/dL (13.5-17.5); Lymphocytes Absolute Auto 1100 /uL (1100-4500); Mean Corpuscular HGB Conc 34.3 % (30-36); Mean Corpuscular Hemoglobin 31.2 PG (26-34); Mean Corpuscular Volume 91.0 fL (80-100); Platelet Count 253 X10^3/uL (150-400)
[2025-08-25 07:47] LABS: Hemoglobin A1C% w Est Avg Glu 4.9 % (4.0-6.0)
[2025-08-25 07:56] LABS: Alanine Aminotransferase 27 IU/L (<50); Albumin 4.3 g/dL (3.5-5.0); Albumin Globulin Ratio 1.6 (1.0-2.8); Alkaline Phosphatase 91 U/L (38-126); Blood Urea Nitrogen 17 mg/dL (9-20); Calcium 9.0 mg/dL (8.4-10.2); Carbon Dioxide 27 mmol/L (22-32); Chloride 104 mmol/L (98-107); Cholesterol 171 mg/dL (140-199); Estimated Glomerular Filt Rate > 60 mL/min (>60); Globulin 2.7 g/dL (1.7-4.1); Glucose 92 mg/dL (70-99); HDL Cholesterol 48 mg/dL (40-60); HEMOLYSIS < 15 (0-50); Potassium 4.1 mmol/L (3.4-5.1); Sodium 138 mmol/L (137-145); Total Protein 7.0 g/dL (6.3-8.2); Triglycerides 122 mg/dL (35-150)
[2025-08-25 08:14] LABS: Free T3, Triiodothyronine Free 3.79 pg/mL (2.77-5.27); Free T4, Direct Thyroxine 0.95 ng/dL (0.78-2.19)
[2025-08-25 08:27] LABS: Thyroid Stimulating Hormone 3.38 uIU/mL (0.47-4.68)
[2025-08-27 08:10] LABS: CRP, High Sensitivity 0.45 mg/L (0.00-3.00)
== END ==
PROVIDERS: PCP Family Medicine; Referring Provider Family Medicine; Visit Provider Family Medicine
DX: Z00.00 Encounter for general adult medical examination without abnormal findings (principal); E78.5 Hyperlipidemia, unspecified; I10 Essential (primary) hypertension; Z13.29 Encounter for screening for other suspected endocrine disorder; Z13.1 Encounter for screening for diabetes mellitus; Z12.5 Encounter for screening for malignant neoplasm of prostate
CPT/HCPCS: 36415; 80053; 80061; 83036; 84439; 84443; 84481; 85025; 86140; G0103